=== PATIENT | female | born 1945 | race Native Hawaiian/Other Pacific Islander ===

== ENCOUNTER 2018-04-27 14:59 | Emergency (ER) | payer MEDICARE ==
[2018-04-27] MEDS ORDERED: Sodium Chloride 0.9% 1,000 ML IV STA (17:06)
[2018-04-27] MEDS ORDERED: Sodium Chloride 0.9% 1,000 ML ONE (18:05)
--- NOTE | 2018-04-27 18:21 | RAD ---
Date of service: 04/27/2018 PROCEDURE: CHEST RADIOGRAPH, 1 VIEW HISTORY: abd pain, nausea, vomiting COMPARISON: None available. FINDINGS: LUNGS: Clear. PLEURA: No pneumothorax or pleural fluid seen. CARDIOVASCULAR: Atherosclerotic calcifications identified primarily aortic arch. No radiographic findings to suggest acute or significant cardiovascular disease. OSSEOUS STRUCTURES: No significant abnormalities. VISUALIZED UPPER ABDOMEN: Normal. OTHER FINDINGS: None. IMPRESSION: No active disease.
[2018-04-27 18:23] LABS: BASO % 0.1 % (0.0-2.0); EOS # 0.1 K/uL (0.0-0.7); EOS % 1.6 % (0.0-4.0); HEMOGLOBIN 13.9 g/dL (11.0-16.0); LYMPH # 0.2 K/uL (1.0-4.3); MEAN CELL VOLUME 89.2 fL (81.0-99.0); MEAN CORPUSCULAR HEMOGLOBIN 29.2 pg (27.0-31.0); MEAN CORPUSCULAR HGB CONC 32.8 g/dL (33.0-37.0); MEAN PLATELET VOLUME 7.9 fL (7.2-11.7); MONO # 0.5 K/uL (0.0-0.8); MONO % 7.1 % (0.0-10.0); NEUT # 6.7 K/uL (1.8-7.0); NEUT % 88.2 % (50.0-75.0); NRBC % 0.1 % (0.0-2.0); PLATELET COUNT 236 K/uL (130-400); RBC 4.77 Mil/uL (3.80-5.20); RED CELL DISTRIBUTION WIDTH 13.6 % (11.5-14.5); WHITE BLOOD COUNT 7.6 K/uL (4.8-10.8)
--- NOTE | 2018-04-27 18:34 | C.PDOC ---
History Of Present Illness 73 year old female presents to the emergency department with complaints of vomiting and diarrhea since last night. Patient denies abdominal pain, fever, chills, nausea, chest pain, shortness of breath. <Lissy Turpin - Last Filed: 04/27/18 18:47> History Per: Patient History/Exam Limitations: no limitations Onset/Duration Of Symptoms: Days (1) Current Symptoms Are (Timing): Still Present Radiation Of Pain To:: None Quality Of Discomfort: denies: "Pain" Associated Symptoms: Vomiting, Diarrhea. denies: Fever, Chills, Nausea <Lissy Turpin - Last Filed: 04/27/18 18:47> <Merary Menon - Last Filed: 04/27/18 21:00> Time Seen by Provider: 04/27/18 16:08 Chief Complaint (Nursing): GI Problem Past Medical History Reviewed: Historical Data, Nursing Documentation, Vital Signs Vital Signs: Last Vital Signs Temp 99.6 F 04/27/18 15:02 Pulse 76 04/27/18 15:02 Resp 18 04/27/18 15:02 BP 132/74 04/27/18 15:02 Pulse Ox 98 04/27/18 15:02 - Medical History PMH: HTN, Rheumatoid Arthritis Surgical History: No Surg Hx Family History: States: No Known Family Hx - Social History Hx Alcohol Use: No Hx Substance Use: No - Immunization History Hx Tetanus Toxoid Vaccination: No Hx Influenza Vaccination: Yes Hx Pneumococcal Vaccination: No <Lissy Turpin - Last Filed: 04/27/18 18:47> Vital Signs: Last Vital Signs Temp 99.6 F 04/27/18 15:02 Pulse 67 04/27/18 18:05 Resp 20 04/27/18 18:05 BP 118/52 L 04/27/18 18:05 Pulse Ox 98 04/27/18 18:48 <Merary Menon - Last Filed: 04/27/18 21:00> Review Of Systems Except As Marked, All Systems Reviewed And Found Negative. Constitutional: Negative for: Fever, Chills Cardiovascular: Negative for: Chest Pain Respiratory: Negative for: Cough, Shortness of Breath Gastrointestinal: Positive for: Vomiting, Diarrhea. Negative for: Nausea, Abdominal Pain <Lissy Turpin - Last Filed: 04/27/18 18:47> Physical Exam - Physical Exam Appears: Non-toxic, No Acute Distress Skin: Normal Color, Warm, Dry Head: Atraumatic, Normacephalic Eye(s): bilateral: Normal Inspection, PERRL, EOMI Nose: Normal Oral Mucosa: Dry Lips: Other (dry) Throat: Normal, No Erythema Neck: Normal, Supple Chest: Symmetrical, No Tenderness Cardiovascular: Rhythm Regular, No Murmur Respiratory: Normal Breath Sounds, No Rales, No Rhonchi, No Wheezing Gastrointestinal/Abdominal: Soft, Tenderness (mild epigastric tenderness), No Guarding, No Rebound Extremity: Normal ROM Neurological/Psych: Oriented x3, Normal Speech, Normal Cognition <Lissy Turpin - Last Filed: 04/27/18 18:47> ED Course And Treatment - Laboratory Results Result Diagrams: 04/27/18 18:14 O2 Sat by Pulse Oximetry: 98 (RA) Pulse Ox Interpretation: Normal Progress Note: Plan: Labs <Lissy Turpin - Last Filed: 04/27/18 18:47> - Laboratory Results Result Diagrams: 04/27/18 18:14 04/27/18 18:14 Lab Results: Troponin I 0.0180 ng/mL (0.00-0.120) 04/27/18 18:14 Total Bilirubin 1.0 mg/dL (0.2-1.3) 04/27/18 18:14 AST 55 U/L (14-36) H 04/27/18 18:14 ALT 9 U/L (9-52) 04/27/18 18:14 Alkaline Phosphatase 57 U/L (38-126) 04/27/18 18:14 Total Protein 7.1 g/dL (6.3-8.3) 04/27/18 18:14 Albumin 4.4 g/dL (3.5-5.0) 04/27/18 18:14 Globulin 2.7 gm/dL (2.2-3.9) 04/27/18 18:14 Albumin/Globulin Ratio 1.6 (1.0-2.1) 04/27/18 18:14 Lipase 35 U/L (23-300) 04/27/18 18:14 Urine Color Yellow (YELLOW) 04/27/18 20:01 Urine Clarity Clear (Clear) 04/27/18 20:01 Urine pH 5.0 (5.0-8.0) 04/27/18 20:01 Ur Specific [place] 1.008 (1.003-1.030) 04/27/18 20:01 Urine Protein Negative mg/dL (NEGATIVE) 04/27/18 20:01 Urine Glucose (UA) Normal mg/dL (Normal) 04/27/18 20:01 Urine Ketones Negative mg/dL (NEGATIVE) 04/27/18 20:01 Urine Blood Negative (NEGATIVE) 04/27/18 20:01 Urine Nitrate Negative (NEGATIVE) 04/27/18 20:01 Urine Bilirubin Negative (NEGATIVE) 04/27/18 20:01 Urine Urobilinogen Normal mg/dL (0.2-1.0) 04/27/18 20:01 Ur Leukocyte Esterase Neg Joce/uL (Negative) 04/27/18 20:01 Urine WBC (Auto) 1 /hpf (0-5) 04/27/18 20:01 Urine RBC (Auto) < 1 /hpf (0-3) 04/27/18 20:01 Ur Squamous Epith Cells < 1 /hpf (0-5) 04/27/18 20:01 Pulse Ox Interpretation: Normal Reevaluation Time: 20:59 Reassessment Condition: Improved <Merary Menon - Last Filed: 04/27/18 21:00> Disposition - Disposition Disposition Time: 18:47 <Lissy Turpin - Last Filed: 04/27/18 18:47> Counseled Patient/Family Regarding: Studies Performed, Diagnosis, Need For Followup, Rx Given <Merary Menon - Last Filed: 04/27/18 21:00> - Disposition Referrals: Kyung Rodriguez MD [Staff Provider] - Disposition: HOME/ ROUTINE Condition: FAIR Additional Instructions: please return if symptoms recur Prescriptions: Ondansetron ODT [Zofran ODT] 1 odt PO BID PRN #6 odt PRN Reason: Nausea/Vomiting Instructions: Nausea and Vomiting, Adult (DC) Forms: [employer] [facility] [employer] (Korean) - Clinical Impression Clinical Impression: Vomiting and diarrhea - 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 - Scribe Statement The provider has reviewed the documentation as recorded by the Scribe (Richard Laguna) All medical record entries made by the Scribe were at my direction and personally dictated by me. I have reviewed the chart and agree that the record accurately reflects my personal performance of the history, physical exam, medical decision making, and the department course for this patient. I have also personally directed, reviewed, and agree with the discharge instructions and disposition. <Lissy Turpin - Last Filed: 04/27/18 18:47> Physician Patient Turnover Patient Signed Over To: Merary Menon Handoff Comments: pending labs/re-eval <Lissy Turpin - Last Filed: 04/27/18 18:47>
[2018-04-27 18:50] LABS: BLOOD UREA NITROGEN 20 mg/dL (7-17); CALCIUM 8.8 mg/dl (8.6-10.4); GFR NON-AFRICAN AMERICAN > 60; LIPASE 35 U/L (23-300)
[2018-04-27 19:00] LABS: ALB/GLOB RATIO 1.6 (1.0-2.1); ALBUMIN 4.4 g/dL (3.5-5.0); ALT/SGPT 9 U/L (9-52); AST/SGOT 55 U/L (14-36)
[2018-04-27 20:36] LABS: SQUAMOUS EPITHIAL < 1 /hpf (0-5); URINE BILIRUBIN NEGATIVE (NEGATIVE); URINE BLOOD NEGATIVE (NEGATIVE); URINE CLARITY Clear (Clear); URINE COLOR Yellow (YELLOW); URINE GLUCOSE (UA) NORMAL (Normal); URINE LEUKOCYTE ESTERASE NEG Leu/uL (Negative); URINE PROTEIN NEGATIVE (NEGATIVE); URINE UROBILINOGEN NORMAL mg/dL (0.2-1.0)
[2018-04-27 21:17] VITALS: BP 111/59; PULSE 75; RESP 19; TEMP 97.9; O2SAT 100
[2018-04-27 22:48] LABS: PLATELET ESTIMATE NORMAL (NORMAL)
[2018-04-27 22:50] LABS: ANISOCYTOSIS SLIGHT; EOSINOPHIL 3 % (0-4); HYPERSEGMENTATION PRESENT; LYMPHOCYTE 3 % (20-40); MONOCYTE 7 % (0-10); NEUTROPHIL 87 % (50-75); POIKILOCYTOSIS SLIGHT; POLYCHROMIC SLIGHT; SMUDGE CELLS PRESENT; SPHEROCYTES SLIGHT; TOTAL CELLS COUNTED 100
[2018-04-27 22:51] LABS: LARGE PLATELETS PRESENT; MICROCYTOSIS SLIGHT
== END 2018-04-27 21:56 | disposition home or self-care (01) ==
LOC: C.ER 14:59
DX: R11.2 Nausea with vomiting, unspecified (principal); R19.7 Diarrhea, unspecified; I10 Essential (primary) hypertension; M06.9 Rheumatoid arthritis, unspecified
CPT/HCPCS: 71045; 80053; 81001; 83690; 84484; 85025; 96361; 96374; 96375; 99285; C9113; J2405; J7030